=== PATIENT | male | born 1995 | race Two or more races ===

== ENCOUNTER → 2017-12-21 | Outpatient (CLI) | payer OTHER | END | disposition home or self-care (01) | LOC: RAD 15:50 | DX: M25.562 Pain in left knee (principal); M54.5 Low back pain ==

== ENCOUNTER 2017-12-22 08:31 | Outpatient (CLI) | payer OTHER | END 2017-12-22 13:49 | disposition home or self-care (01) | LOC: MRI 08:31 | DX: M25.562 Pain in left knee (principal) | CPT/HCPCS: 73721 ==

== ENCOUNTER 2018-02-23 15:52 | Outpatient (CLI) | payer OTHER | END 2018-02-23 16:00 | disposition home or self-care (01) | LOC: NUCLEAR 15:52 | DX: I82.402 Acute embolism and thrombosis of unspecified deep veins of left lower extremity (principal); Z86.718 Personal history of other venous thrombosis and embolism ==